=== PATIENT | male | born 2000 | race Caucasian/White ===

== ENCOUNTER 2021-08-05 00:31 | Emergency (ER) | payer BC ==
[~2021-08-05] VITALS: Ht 182.9 cm; Wt 79.5 kg
[2021-08-05 04:13] VITALS: BP 128/82; PULSE 84; TEMP 98.6
== END 2021-08-05 04:13 | disposition home or self-care (01) ==
LOC: COL.ER 00:31
DX: S01.81XA Laceration without foreign body of other part of head, initial encounter (principal); F10.129 Alcohol abuse with intoxication, unspecified; Y04.0XXA Assault by unarmed brawl or fight, initial encounter